=== PATIENT | female | born 1965 ===

== ENCOUNTER 2017-09-21 13:29 | Emergency (ER) | payer OTHER, SELFPAY ==
[2017-09-21 13:44] VITALS: BP 117/66; PULSE 88; RESP 16; TEMP 98; O2SAT 100
--- NOTE | 2017-09-21 15:21 | ED PDOC ---
HPI: CCC, URI, Sore Throat Time Seen by Provider: 09/21/17 13:53 Chief Complaint (Nursing): Cough, Cold, Congestion Chief Complaint (Provider): cough, cold, congestion History Per: Patient History/Exam Limitations: no limitations Onset/Duration Of Symptoms: Days (x3) Current Symptoms Are (Timing): Still Present Associated Symptoms: Fever, Sore Throat, Cough, Nasal Congestion, Other (body aches). denies: Nausea, Vomiting, Diarrhea Additional Complaint(s): Thais Williamson is a 52 year old female, with no significant past medical history, who presents to the emergency department complaining of fever, cough, congestion, sore throat and body aches onset for x3 days. Patient states she has been taking over the counter medication without relief. He daughter has similar symptoms, was prescribed amoxicillin, without any relief. Patient denies any chest pain, shortness of breath, hemoptysis, abdominal pain, nausea, vomit, or diarrhea. No further medical complaints. PMD: Rose Mary Adams Past Medical History Reviewed: Historical Data, Nursing Documentation, Vital Signs Vital Signs: Last Vital Signs Temp 98.0 F 09/21/17 13:40 Pulse 88 09/21/17 13:40 Resp 16 09/21/17 13:40 BP 117/66 09/21/17 13:40 Pulse Ox 100 09/21/17 16:14 - Medical History PMH: No Chronic Diseases - Surgical History Surgical History: No Surg Hx - Family History Family History: States: Unknown Family Hx - Immunization History Hx Tetanus Toxoid Vaccination: No - Home Medications Home Medications: Ambulatory Orders Medication Instructions Recorded Methylprednisolone [Medrol Dose 4 mg PO DAILY #21 mg 06/24/16 Pack (21 tabs)] Promethazine HCl/Codeine 5 ml PO HS #80 ml 06/24/16 [Prometh-Codein 6.25-10 mg/5 ml] Docusate [Colace] 100 mg PO DAILY #10 cap 09/08/16 Albuterol HFA [Ventolin HFA 90 2 puff IH [id number] PRN #90 puff 09/21/17 mcg/actuation (8 g)] Promethazine DM [Phenergan DM 5 - 10 ml PO Q8 PRN #120 ml 09/21/17 Syrup] - Allergies Allergies/Adverse Reactions: Allergies Allergy/AdvReac Type Severity Reaction Status Date / Time No Known Allergies Allergy Verified 09/08/16 13:56 Review of Systems ROS Statement: Except As Marked, All Systems Reviewed And Found Negative Constitutional: Positive for: Fever, Other (body aches) ENT: Positive for: Nose Congestion, Throat Pain Cardiovascular: Negative for: Chest Pain Respiratory: Positive for: Cough. Negative for: Shortness of Breath, Hemoptysis Gastrointestinal: Negative for: Nausea, Vomiting, Abdominal Pain, Diarrhea Physical Exam - Reviewed Nursing Documentation Reviewed: Yes Vital Signs Reviewed: Yes - Physical Exam Comments: Appears: No acute distress Skin: Normal color, Warm, Dry Eyes: Normal appearance, PERRL, EOMI ENT: Normal Cardiac: Regular rate and rhythm Lungs: Normal breath sounds, no respiratory distress, no accessory muscle use Abdominal: No tenderness Neuro: Alert, Oriented - ECG O2 Sat by Pulse Oximetry: 100 (RA) Pulse Ox Interpretation: Normal - Radiology X-Ray: Interpreted by Me (CXR) Medical Decision Making Medical Decision Making: Initial Impression: Influenza-like illness Initial Plan: --CXR (PA/LAT) [Chest two views (AP/LAT)] [RAD] --reevaluation 16:11 CXR: NAD 15:51 Upon provider reevaluation patient is feeling better, is medically stable, and requires no further treatment in the ED at this time. Patient will be discharged home with Rx for Albuterol HFA and Promethazine. Counseling was provided and all questions were answered regarding diagnosis. There is agreement to discharge plan. Return if symptoms persist or worsen. ~ Scribe Attestation: Documented by Franok Hughes, acting as a scribe for Bismark Cespedes PA-C. Provider Scribe Attestation: All medical record entries made by the Scribe were at my direction and personally dictated by me. I have reviewed the chart and agree that the record accurately reflects my personal performance of the history, physical exam, medical decision making, and the department course for this patient. I have also personally directed, reviewed, and agree with the discharge instructions and disposition. Disposition - Clinical Impression Clinical Impression: Influenza-like illness - Patient ED Disposition Is Patient to be Admitted: No - Disposition Disposition: Routine/Home Disposition Time: 15:51 Condition: STABLE Prescriptions: Albuterol HFA [Ventolin HFA 90 mcg/actuation (8 g)] 2 puff IH [id number] PRN #90 puff PRN Reason: Cough Promethazine DM [Phenergan DM Syrup] 5 - 10 ml PO Q8 PRN #120 ml PRN Reason: Cough Instructions: Influenza (ED) Forms: [facility] (Danish) Print Language: MAORI
--- NOTE | 2017-09-21 16:12 | RAD ---
HISTORY: cough COMPARISON: No prior. TECHNIQUE: Chest PA and lateral FINDINGS: LUNGS: Small bibasilar opacities are noted may represent atelectasis. Prominent lung markings. PLEURA: No significant pleural effusion identified. No pneumothorax apparent. CARDIOVASCULAR: Normal. OSSEOUS STRUCTURES: No significant abnormalities. VISUALIZED UPPER ABDOMEN: Normal. OTHER FINDINGS: None. IMPRESSION: Small bibasilar opacities more prominent on the left side may represent atelectasis. The possibility of pneumonia is less likely. No evidence of pleural effusion.
== END 2017-09-21 16:10 | disposition home or self-care (01) ==
LOC: H.ER 13:29
DX: J11.1 Influenza due to unidentified influenza virus with other respiratory manifestations (principal)

== ENCOUNTER 2018-07-27 19:05 | Emergency (ER) | payer SELFPAY ==
[2018-07-27 19:26] VITALS: O2SAT 99
--- NOTE | 2018-07-27 21:36 | ED PDOC ---
History of Present Illness History of Present Illness: Thais Sutherland is a 53 year old female with no past medical history who is presenting to the ED for evaluation of flu-like symptoms for the past week. Patient states that she developed a non-productive cough with nasal congestion and mild headaches. She reports that the cough keeps her up at night and adds that she has had subjective fevers at home with chills. She denies any night sweats, sore throat, ear pain, nausea, vomiting, or diarrhea. Patient admits that she has chest pain when she coughs associated with occasional back pain but denies any shortness of breath, pain to arm or jaw, dizziness, or epigastric pain. She states that she has only been taking Robitussin with minimal relief of symptoms and denies any sick contacts. Of note, patient states that she has not gotten her flu shot. PMD: none provided HPI: Influenza Time Seen by Provider: 07/27/18 19:58 Chief Complaint: Fever Chief Complaint (Provider): fever History Per: Patient Exam Limitations: no limitations Onset/Duration Of Symptoms: Days Symptoms include: fever, headache, cough, nasal congestion. denies: sore throat, vomiting, diarrhea Past Medical History Reviewed: Historical Data, Nursing Documentation, Vital Signs Vital Signs: Last Vital Signs Temp 98.5 F 07/27/18 19:22 Pulse 90 07/27/18 19:22 Resp 18 07/27/18 19:22 BP 135/77 07/27/18 19:22 Pulse Ox 99 07/27/18 19:22 - Medical History PMH: No Chronic Diseases Denies: Diabetes, HTN, Hypercholesterolemia, Hyperlipidemia - Surgical History Surgical History: No Surg Hx - Family History Family History: States: Unknown Family Hx - Social History Current smoker - smoking cessation education provided: No Alcohol: None Drugs: Denies - Immunization History Hx Tetanus Toxoid Vaccination: No - Home Medications Home Medications: Ambulatory Orders Medication Instructions Recorded Methylprednisolone [Medrol Dose 4 mg PO DAILY #21 mg 06/24/16 Pack (21 tabs)] Promethazine HCl/Codeine 5 ml PO HS #80 ml 06/24/16 [Prometh-Codein 6.25-10 mg/5 ml] Docusate [Colace] 100 mg PO DAILY #10 cap 09/08/16 Albuterol HFA [Ventolin HFA 90 2 puff IH [id number] PRN #90 puff 09/21/17 mcg/actuation (8 g)] Promethazine DM [Phenergan DM 5 - 10 ml PO Q8 PRN #120 ml 09/21/17 Syrup] Eucalyptus Oil/Menthol/Camphor 1 oin TP HS PRN #1 oin 07/27/18 [Vicks Vaporub 4.7%-1.2%-2.6%] Fluticasone Propionate [Flonase] 2 spr NS BID PRN #1 spr 07/27/18 Ibuprofen [Motrin Tab] 600 mg PO Q6 PRN 5 Days tab 07/27/18 Promethazine DM [Phenergan DM 5 ml PO Q8H PRN 5 Days cup 07/27/18 Syrup] - Allergies Allergies/Adverse Reactions: Allergies Allergy/AdvReac Type Severity Reaction Status Date / Time No Known Allergies Allergy Verified 09/08/16 13:56 Review of Systems ROS Statement: Except As Marked, All Systems Reviewed And Found Negative Constitutional: Positive for: Fever, Chills ENT: Positive for: Nose Congestion. Negative for: Ear Pain, Throat Pain Cardiovascular: Positive for: Chest Pain Respiratory: Negative for: Shortness of Breath Gastrointestinal: Negative for: Nausea, Vomiting, Abdominal Pain, Diarrhea Musculoskeletal: Positive for: Back Pain Neurological: Positive for: Headache Physical Exam - Reviewed Nursing Documentation Reviewed: Yes Vital Signs Reviewed: Yes - Physical Exam Appears: Positive for: Non-toxic, No Acute Distress, Uncomfortable Head Exam: Positive for: ATRAUMATIC, NORMAL INSPECTION, NORMOCEPHALIC Skin: Positive for: Normal Color, Warm Eye Exam: Positive for: EOMI, PERRL, Conjunctival injection (bilateral) ENT: Positive for: TM Is/Are (obscured bu cerumen), Pharyngeal Erythema, Other (swollen nasal turbinates). Negative for: Tonsillar Exudate, Tonsillar Swelling Cardiovascular/Chest: Positive for: Regular Rate, Rhythm, Chest Non Tender. Negative for: Murmur Respiratory: Positive for: Normal Breath Sounds. Negative for: Respiratory Distress Gastrointestinal/Abdominal: Positive for: Normal Exam, Soft. Negative for: Tenderness Neurologic/Psych: Positive for: Alert, Oriented. Negative for: Motor/Sensory Deficits Medical Decision Making Medical Decision Making: Time: 20:32 Plan: --Motrin 600 mg PO --Rapid Flu Scribe Attestation: Documented by Nuris Peralta, acting as a scribe for Estefania Lynn PA-C. Provider Scribe Attestation: All medical record entries made by the Scribe were at my direction and personally dictated by me. I have reviewed the chart and agree that the record accurately reflects my personal performance of the history, physical exam, medical decision making, and the department course for this patient. I have also personally directed, reviewed, and agree with the discharge instructions and disposition. - ECG ECG Rhythm: Positive for: Normal QRS, Sinus Rhythm, ST/T Changes (non specific t wave changes at v1 and v2 ) Rate: 85 O2 Sat by Pulse Oximetry: 99 (RA) Pulse Ox Interpretation: Normal Disposition - Clinical Impression Clinical Impression: Viral respiratory illness - Patient ED Disposition Is Patient to be Admitted: No - Disposition Referrals: [facility] [Outside] Disposition: Routine/Home Disposition Time: 21:30 Condition: STABLE Additional Instructions: Use Vicks Vapor Rub and Promethazine as needed for cough. Use Tylenol or Ibupro fen for body aches. Humidified air can help with nasal congestion. Prescriptions: Eucalyptus Oil/Menthol/Camphor [Vicks Vaporub 4.7%-1.2%-2.6%] 1 oin TP HS PRN #1 oin PRN Reason: Cough And Congestion Fluticasone Propionate [Flonase] 2 spr NS BID PRN #1 spr PRN Reason: Nasal Congestion Ibuprofen [Motrin Tab] 600 mg PO Q6 PRN 5 Days tab PRN Reason: Pain, Moderate (4-7) Promethazine DM [Phenergan DM Syrup] 5 ml PO Q8H PRN 5 Days cup PRN Reason: Cough Instructions: Viral Syndrome (DC) Forms: [facility] (Ukrainian) Print Language: ARMENIAN
[2018-07-27 21:37] VITALS: BP 124/68; RESP 16; TEMP 98.4
[2018-07-27 21:43] VITALS: PULSE 85
== END 2018-07-27 21:36 | disposition home or self-care (01) ==
LOC: H.ER 19:05
DX: B34.9 Viral infection, unspecified (principal)